=== PATIENT | female | born 1940 | race Caucasian/White ===

== ENCOUNTER 2017-09-22 08:03 | Day surgery (SDC) | payer MEDICARE, OTHER ==
[~2017-09-22 08:03] MED LIST: Lactated Ringers 1,000 ML IV SCH; Sodium Chloride 0.9% 10 ML Syringe FLUSH PRN; Sodium Chloride 0.9% 2.5 ML Syringe FLUSH PRN
--- NOTE | 2017-09-22 08:50 | PCM.PREANE ---
Preanesthetic Assessment - Anesthesia/Transfusion/Family Hx Anesthesia History: Prior Anesthesia Without Reaction Family History of Anesthesia Reaction: No Transfusion History: No Prior Transfusion(s) - Review of Systems General: No Symptoms Pulmonary: No Symptoms Cardiovascular: No Symptoms Gastrointestinal: No Symptoms Neurological: No Symptoms Other: Reports: None - Physical Assessment NPO Status Date: 09/21/17 O2 Sat by Pulse Oximetry: 99 Respiratory Rate: 16 Vital Signs: Last Vital Signs Temp 36 C 09/22/17 08:12 Pulse 86 09/22/17 08:12 Resp 16 09/22/17 08:12 BP 131/82 09/22/17 08:12 Pulse Ox 99 09/22/17 08:12 Height: 1.6 m Weight: 51.256 kg ASA Class: 2 Mental Status: Alert & Oriented x3 Airway Class: Mallampati = 1 Lungs: Clear to Auscultation, Normal Respiratory Effort Cardiovascular: Regular Rate, Regular Rhythm - Allergies Allergies/Adverse Reactions: Allergies Allergy/AdvReac Type Severity Reaction Status Date / Time No Known Allergies Allergy Verified 09/19/17 13:30 - Anesthesia Plan Pre-Op Medication Ordered: None - Acknowledgements Anesthesia Type Planned: MAC Pt an Appropriate Candidate for the Planned Anesthesia: Yes Alternatives and Risks of Anesthesia Discussed w Pt/Guardian: Yes Pt/Guardian Understands and Agrees with Anesthesia Plan: Yes PreAnesthesia Questionnaire HEENT History: Reports: Other (See Below) Other HEENT History: wears glasses, top and bottom partial Cardiovascular History: Reports: Hypertension Genitourinary History: Reports: None 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: Musculoskeletal History: Reports: Fracture, Osteoarthritis Other Musculoskeletal History: hx fx rt hip Psychiatric History: Reports: Anxiety, Depression Endocrine/Metabolic History: Reports: None Hematologic History: Reports: Iron Deficiency - Past Surgical History Head Surgeries/Procedures: Reports: None HEENT Surgical History: Reports: None Female Surgical History: Reports: D&C Musculoskeletal Surgical History: Reports: Hip Replacement Other Musculoskeletal Surgeries/Procedures:: surgical tx for fx rt hip - SUBSTANCE USE Smoking Status *Q: Never Smoker Second Hand Smoke Exposure: No Recreational Drug Use History: No - HOME MEDS Home Medications: Home Meds Losartan/Hydrochlorothiazide [Losartan-HCTZ 100-25 MG] 100 mg PO DAILY 02/02/15 [History] amLODIPine Besylate [Amlodipine Besylate] 5 mg PO DAILY 02/02/15 [History] Ascorbic Acid [Vitamin C] 500 mg PO DAILY 09/19/17 [History] Aspirin [[place] Aspirin] 81 mg PO DAILY 09/19/17 [History] Calcium Carbonate/Vitamin D3 [Calcium 600 + Vit D 200] 1 tab PO DAILY 09/19/17 [ History] Cholecalciferol (Vitamin D3) [Vitamin D3] 1,000 units PO DAILY 09/19/17 [History ] Iron 1 tab PO DAILY 09/19/17 [History] - CURRENT (IN HOUSE) MEDS Current Meds: Current Medications Lactated Ringer's (Ringers, Lactated) 1,000 mls @ 125 mls/hr IV ASDIRECTED KATHRYN Last Admin: 09/22/17 08:19 Dose: 125 mls/hr Sodium Chloride (Saline Flush) 10 ml FLUSH ASDIRECTED PRN PRN Reason: Keep Vein Open Sodium Chloride (Saline Flush) 2.5 ml FLUSH ASDIRECTED PRN PRN Reason: Keep Vein Open Sodium Chloride (Saline Flush) 10 ml FLUSH ASDIRECTED PRN PRN Reason: Keep Vein Open Sodium Chloride (Saline Flush) 2.5 ml FLUSH ASDIRECTED PRN PRN Reason: Keep Vein Open
[2017-09-22] MEDS ORDERED: Propofol 200 MG/20 ML SDV ONE ×2 (09:07→11:06)
[2017-09-22] MEDS ORDERED: Glycopyrrolate 0.2 MG/ML SDV ONE (11:21)
--- NOTE | 2017-09-22 11:41 | PCM.OPNOTE ---
- General Post-Op/Procedure Note Date of Surgery/Procedure: 09/22/17 Operative Procedure(s): Diagnostic EGD and colonoscopy Findings: Normal EGD and colonoscopy Pre Op Diagnosis: Anemia Post-Op Diagnosis: same Anesthesia Technique: MAC Primary Surgeon: Adriane Haq Condition: Good
--- NOTE | 2017-09-22 11:55 | PCM.POSTAN ---
POST ANESTHESIA ASSESSMENT - MENTAL STATUS Mental Status: Alert, Oriented - RESPIRATORY Respiratory Status: Respiratory Rate WNL, Airway Patent, O2 Saturation Stable - CARDIOVASCULAR CV Status: Pulse Rate WNL, Blood Pressure Stable - GASTROINTESTINAL GI Status: No Symptoms - POST OP HYDRATION Hydration Status: Adequate & Stable
--- NOTE | 2017-09-22 11:56 | PCM48HPAN ---
Post Anesthesia Note - EVALUATION WITHIN 48HRS OF ANESTHETIC Vital Signs in Normal Range: Yes Patient Participated in Evaluation: Yes Respiratory Function Stable: Yes Airway Patent: Yes Cardiovascular Function Stable: Yes Hydration Status Stable: Yes Pain Control Satisfactory: Yes Nausea and Vomiting Control Satisfactory: Yes Mental Status Recovered: Yes
[2017-09-22 12:15] VITALS: BP 120/80
--- NOTE | 2017-09-22 20:16 | OR ---
SURGEON: ADRIANE HAQ MD DATE OF PROCEDURE: 09/22/2017 PREOPERATIVE DIAGNOSIS: Anemia. POSTOPERATIVE DIAGNOSIS: Anemia. PROCEDURE PERFORMED: Diagnostic EGD and colonoscopy. PRIMARY SURGEON: Adriane Haq MD. ANESTHESIA: MAC. INSTRUMENT USED: Olympus endoscope and Olympus colonoscope. EXTENT OF EXAM: To the second portion of duodenum, to the cecum. PREPARATION: Good. LIMITATIONS: None. INDICATION FOR EXAMINATION: The patient is a 77-year-old female, who recently was found to be mildly anemic on a screening blood panel. She denies any changes in her eating or bowel habits. She does have a sister, who had colon cancer. She has never had a colonoscopy. The decision was made to perform a diagnostic EGD and colonoscopy. We discussed the procedure as well as expected perioperative course. We discussed the risks including bleeding, infection, or damage to surrounding structures including perforation. The patient verbalized understanding and wishes to proceed. PROCEDURE IN DETAIL: The patient was brought to the endoscopy suite and placed in a beach chair position. A time-out was completed verifying the patient's name, age, date of , allergies, and procedure to be performed. Monitored anesthesia care was induced and continuous oxygen was provided via nasal cannula throughout the procedure. A bite block was placed in the patient's mouth. After adequate sedation was achieved, a well lubricated endoscope was placed in the patient's mouth and advanced under direct visualization to the level of second portion of duodenum. This appeared normal and a photograph was taken. The scope was then fully withdrawn while examining the upper GI tract. The duodenal bulb appeared normal. The scope was then brought into the stomach and a photograph was taken of the pylorus and GE junction, which appeared normal. The gastric mucosa showed no evidence of ulceration or inflammation. Biopsies were taken at the gastric antrum, body, and fundus and sent for H. pylori testing. The scope was brought into the distal esophagus which appeared normal. A photograph was taken. The scope was fully pulled back to the remainder of the esophagus and no pathology was noted. The scope was then removed and this portion of procedure terminated. The patient was placed in a left lateral decubitus position. A digital rectal exam was performed. This exam was within normal limits. A well lubricated colonoscope was inserted in the rectum and advanced under direct visualization to the level of cecum. The cecum was identified by both visual and anatomic landmarks. The patient had a very redundant colon that was quite tortuous, so I was unable to retroflex the scope within the cecum. A photograph was taken of the cecal cap. The scope was then fully withdrawn while examining the color, texture, anatomy, and integrity of mucosa from the cecum to the anal canal. This exam was all within normal limits. The scope was brought into the rectum. I attempted to retroflex the scope multiple times within the rectum to visualize the anal canal, however, the patient had a small rectal vault, and I could not achieve this. I took great care to examine the rectum on my way out. The scope was fully withdrawn and the procedure terminated. The cecum to anus time was 6 minutes. The patient tolerated the procedure well and was taken to the PACU in stable condition. ENDOSCOPIC DIAGNOSES: Normal EGD and colonoscopy. RECOMMENDATIONS: We will follow up on the patient's biopsy results. If these are normal, she does not need to follow up in clinic with me. Given her family history of colon cancer, ideally she should have another colonoscopy again in 5 years or if there are changes in her bowel habits. CHARMAINE WARREN /[id number] LAURENCE
== END 2017-09-22 12:15 | disposition home or self-care (01) ==
LOC: MW.SDS 08:03
PROVIDERS: ATTEND Surgery
DX: D64.9 Anemia, unspecified (principal); N20.0 Calculus of kidney; I10 Essential (primary) hypertension; D50.9 Iron deficiency anemia, unspecified; M19.90 Unspecified osteoarthritis, unspecified site; M81.0 Age-related osteoporosis without current pathological fracture; Z79.82 Long term (current) use of aspirin; Z79.899 Other long term (current) drug therapy; Z98.890 Other specified postprocedural states; Z96.641 Presence of right artificial hip joint
CPT/HCPCS: 43239; 45378; J7120; 00813; 88305; 88312; J2704

== ENCOUNTER 2020-03-12 09:59 | Emergency (ER) | payer MEDICARE, OTHER ==
[2020-03-12] MEDS ORDERED: Diphtheria,Pertussis(Acell),Tetanus Vaccine 0.5 ML Syringe IM ONE (10:15)
[2020-03-12] MEDS ORDERED: Lidocaine 1% with EPINEPHrine 1:100,000 10 ML MDV INJECT ONE (10:15)
--- NOTE | 2020-03-12 10:19 | EDM.PDOC ---
ED HPI GENERAL MEDICAL PROBLEM - General Chief Complaint: Head Injury Stated Complaint: CUT ON HEAD Time Seen by Provider: 03/12/20 10:12 - History of Present Illness INITIAL COMMENTS - FREE TEXT/NARRATIVE: History of present illness: 79-year-old female presenting with head injury with laceration. No loss of consciousness. Apparently she was getting up this morning and tripped over her bed and fell and struck her forehead into the leg of the bed. She has some pain at the site of the laceration and some neck pain. Reports no anticoagulation, does take aspirin daily. Review of systems: As per history of present illness and below otherwise all systems reviewed and negative. Past medical history: As per history of present illness and as reviewed below otherwise noncontributory. Hypertension Surgical history: As per history of present illness and as reviewed below otherwise noncontributory. Social history: No reported history of drug or alcohol abuse. No tobacco Family history: As per history of present illness and as reviewed below otherwise noncontributory. Physical exam: GEN: no acute distress, well appearing HEENT: 3 cm laceration over the forehead and into the hairline in the midline, subcutaneous tissue visible,, normocephalic, mucous membranes moist, Neck: supple, mildly tender, trachea midline. Lungs: No respiratory distress. Heart: RRR Abdomen: Soft, nondistended, nontender. Back: nontender Extremities: Atraumatic. Neurovascularly intact. Neuro: Awake, alert, oriented. Neuro Exam nonfocal. Skin: warm, dry, no lesions Diagnostics: [] Therapeutics: [] MDM: Impression: [] Plan: [] Definitive disposition and diagnosis as appropriate pending reevaluation and review of above. Neck Pain Score (Numeric/FACES): 8 - Related Data Allergies Allergy/AdvReac Type Severity Reaction Status Date / Time No Known Allergies Allergy Verified 03/12/20 10:15 Home Meds: Home Meds Losartan/Hydrochlorothiazide [Losartan-HCTZ 100-25 MG] 100 mg PO DAILY 02/02/15 [History] amLODIPine Besylate [Amlodipine Besylate] 5 mg PO DAILY 02/02/15 [History] Ascorbic Acid [Vitamin C] 500 mg PO DAILY 09/19/17 [History] Aspirin [[place] Aspirin EC] 81 mg PO DAILY 09/19/17 [History] Calcium Carbonate/Vitamin D3 [Calcium 600 + Vit D 200] 1 tab PO DAILY 09/19/17 [History] Cholecalciferol (Vitamin D3) [Vitamin D3] 1,000 units PO DAILY 09/19/17 [History] Iron 1 tab PO DAILY 09/19/17 [History] Past Medical History HEENT History: Reports: Other (See Below) Other HEENT History: wears glasses Cardiovascular History: Reports: Hypertension Genitourinary History: Reports: None 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: Musculoskeletal History: Reports: Fracture, Osteoarthritis Other Musculoskeletal History: hx fx rt hip Psychiatric History: Reports: Anxiety, Depression Endocrine/Metabolic History: Reports: None Hematologic History: Reports: Iron Deficiency - Past Surgical History Head Surgeries/Procedures: Reports: None HEENT Surgical History: Reports: None Female Surgical History: Reports: D&C Musculoskeletal Surgical History: Reports: Hip Replacement Other Musculoskeletal Surgeries/Procedures:: surgical tx for fx rt hip ED ROS GENERAL - Review of Systems Review Of Systems: See Below (HPI) ED EXAM, HEAD INJURY - Physical Exam Exam: See Below (See HPI) ED LACERATION/WOUND & DELMY PROC - Laceration/Wound Repair Middle Face Lac/wound length in cm: 3 Appearance: Subcutaneous, Clean Anesthetic Type: Local Local Anesthesia - Lidocaine (Xylocaine): 1% Plain, 1% with EPI Local Anesthetic Volume: 2cc Skin Prep: Providone-Iodine (Betadine), Saline Saline irrigation (cc's): 20 Exploration/Debridement/Repair: Wound Explored, In a Bloodless Field, Explored to Base, No Foreign Material Found Closed with: Sutures Suture Size: 4-0 # of Sutures: 4 Suture Type: Simple, Other (ethilon) Course - Vital Signs Text/Narrative:: Closed head injury. Laceration present. Tetanus will be updated. CT scans ordered. Laceration will require suture repair. CT head with no acute intracranial injury, probably chronic meningioma seen. CT C-spine shows C2 dens fracture with 2 mm of posterior displacement. Will need transfer. I have spoken to the CT department who will push the images over to [facility] so the neurosurgeon can evaluate them. Spoke to both the emergency department physician at [facility] and the neurosurgeon, Dr. Austin at [facility], both of whom accept the patient. The patient was awaiting transfer team when she developed atrial fibrillation - no hx of same. Started on diltiazem and IVF. Labs unremarkable, including negative troponin. anticoagulation held ,pending neurosurgery evaluation, in case of possible need for surgical evaluation and due to recent onset afib. Last Recorded V/S: Last Vital Signs Temp 97.6 F 03/12/20 10:18 Pulse 105 H 03/12/20 13:01 Resp 10 L 03/12/20 13:01 BP 96/49 L 03/12/20 13:01 Pulse Ox 98 03/12/20 13:01 - Orders/Labs/Meds Orders: Active Orders 24 hr Category Date Time Status EKG Documentation Completion [RC] STAT Care 03/12/20 11:53 Active Vaccines to be Administered [RC] PER UNIT ROUTINE Care 03/12/20 10:16 Active Saline Lock Insert [OM.PC] Stat Oth 03/12/20 11:16 Ordered Labs: Laboratory Tests 03/12/20 03/12/20 03/12/20 Range/Units 11:28 11:28 11:28 WBC 14.01 H (4.0-11.0) K/uL RBC 4.29 L (4.30-5.90) M/uL Hgb 13.5 (12.0-16.0) g/dL Hct 39.0 (36.0-46.0) % MCV 90.9 (80.0-98.0) fL MCH 31.5 (27.0-32.0) pg MCHC 34.6 (31.0-37.0) g/dL RDW Std Deviation 42.2 (28.0-62.0) fl RDW Coeff of Jaydon 13 (11.0-15.0) % Plt Count 334 (150-400) K/uL MPV 8.30 (7.40-12.00) fL Neut % (Auto) 77.8 (48.0-80.0) % Lymph % (Auto) 12.6 L (16.0-40.0) % Bennett % (Auto) 9.4 (0.0-15.0) % Eos % (Auto) 0.1 (0.0-7.0) % Baso % (Auto) 0.1 (0.0-1.5) % Neut # (Auto) 10.9 H (1.4-5.7) K/uL Lymph # (Auto) 1.8 (0.6-2.4) K/uL Bennett # (Auto) 1.3 H (0.0-0.8) K/uL Eos # (Auto) 0.0 (0.0-0.7) K/uL Baso # (Auto) 0.0 (0.0-0.1) K/uL Nucleated RBC % 0.0 /100WBC Nucleated RBCs # 0 K/uL INR 0.99 Sodium 133 L (136-145) mmol/L Potassium 3.5 (3.5-5.1) mmol/L Chloride 97 L (98-107) mmol/L Carbon Dioxide 28.0 (21.0-32.0) mmol/L BUN 22 H (7.0-18.0) mg/dL Creatinine 1.0 (0.6-1.0) mg/dL Est Cr Clr Drug Dosing 34.42 mL/min Estimated GFR (MDRD) 53.5 ml/min Glucose 98 (74-106) mg/dL Calcium 9.4 (8.5-10.1) mg/dL Total Bilirubin 0.6 (0.2-1.0) mg/dL AST 28 (15-37) IU/L ALT 35 (14-63) IU/L Alkaline Phosphatase 57 (46-116) U/L Troponin I (0.000-0.056) ng/mL Total Protein 8.0 (6.4-8.2) g/dL Albumin 4.4 (3.4-5.0) g/dL Globulin 3.6 (2.6-4.0) g/dL Albumin/Globulin Ratio 1.2 (0.9-1.6) 03/12/20 Range/Units 11:28 WBC (4.0-11.0) K/uL RBC (4.30-5.90) M/uL Hgb (12.0-16.0) g/dL Hct (36.0-46.0) % MCV (80.0-98.0) fL MCH (27.0-32.0) pg MCHC (31.0-37.0) g/dL RDW Std Deviation (28.0-62.0) fl RDW Coeff of Jaydon (11.0-15.0) % Plt Count (150-400) K/uL MPV (7.40-12.00) fL Neut % (Auto) (48.0-80.0) % Lymph % (Auto) (16.0-40.0) % Bennett % (Auto) (0.0-15.0) % Eos % (Auto) (0.0-7.0) % Baso % (Auto) (0.0-1.5) % Neut # (Auto) (1.4-5.7) K/uL Lymph # (Auto) (0.6-2.4) K/uL Bennett # (Auto) (0.0-0.8) K/uL Eos # (Auto) (0.0-0.7) K/uL Baso # (Auto) (0.0-0.1) K/uL Nucleated RBC % /100WBC Nucleated RBCs # K/uL INR Sodium (136-145) mmol/L Potassium (3.5-5.1) mmol/L Chloride (98-107) mmol/L Carbon Dioxide (21.0-32.0) mmol/L BUN (7.0-18.0) mg/dL Creatinine (0.6-1.0) mg/dL Est Cr Clr Drug Dosing mL/min Estimated GFR (MDRD) ml/min Glucose (74-106) mg/dL Calcium (8.5-10.1) mg/dL Total Bilirubin (0.2-1.0) mg/dL AST (15-37) IU/L ALT (14-63) IU/L Alkaline Phosphatase (46-116) U/L Troponin I < 0.050 (0.000-0.056) ng/mL Total Protein (6.4-8.2) g/dL Albumin (3.4-5.0) g/dL Globulin (2.6-4.0) g/dL Albumin/Globulin Ratio (0.9-1.6) Meds: Medications Discontinued Medications Generic Name Dose Route Start Last Admin Trade Name Freq PRN Reason Stop Dose Admin Diltiazem HCl 20 mg 03/12/20 12:32 03/12/20 12:39 Diltiazem IVPUSH 03/12/20 12:33 20 mg ONETIME ONE Administration Diphtheria/Tetanus/Acell Pertussis 0.5 ml 03/12/20 10:15 03/12/20 10:45 Adacel IM 03/12/20 10:16 0.5 ml .ONCE ONE Administration Sodium Chloride 1,000 mls @ 999 mls/hr 03/12/20 11:53 03/12/20 12:01 Normal Saline IV 03/12/20 12:53 999 mls/hr .Bolus ONE Administration Sodium Chloride 1,000 mls @ 999 mls/hr 03/12/20 12:45 Normal Saline IV ASDIRECTED KATHRYN Lidocaine HCl 5 ml 03/12/20 10:19 03/12/20 10:45 Xylocaine-Mpf 1% INJECT 03/12/20 10:20 5 ml ONETIME ONE Administration Lidocaine/Epinephrine 10 ml 03/12/20 10:15 03/12/20 10:20 Xylocaine 1% With Epinephrine 1:100,000 INJECT 03/12/20 10:16 Not Given ONETIME ONE Sodium Chloride 10 ml 03/12/20 11:16 03/12/20 11:49 Saline Flush FLUSH 10 ml ASDIRECTED PRN Administration Keep Vein Open Sodium Chloride 2.5 ml 03/12/20 11:16 03/12/20 11:49 Saline Flush FLUSH 2.5 ml ASDIRECTED PRN Administration Keep Vein Open - Re-Assessments/Exams Free Text/Narrative Re-Assessment/Exam: 03/12/20 11:20 Well-appearing and in no acute distress. Resting comfortably. I discussed CT scan findings including posterior likely chronic meningioma, she had no history of this but discussed with her that she will need ongoing continuing monitoring and following for this. She is not having any headache in this area. Also discussed that she has a C2 dens fracture which needs neurosurgical evaluation and that she will need transfer to [facility]. She agrees with that plan and accepts consent to transfer. 03/12/20 11:[address] Morataya, ER physician at [facility]. Request to speak to neurosurgery prior to accepting transfer. I also spoke with Dr. Austin, the neurosurgeon, who accepts the transfer. 03/12/20 12:05 While awaiting transfer, the patient developed a tachycardic heart rate. EKG was performed which shows atrial fibrillation with rapid rate of 144. The patient is asymptomatic. Will add on troponin and start rate control. 03/12/20 12:[address] Morataya, ER physician at [facility], I updated him ab out the new developments of tachycardia including new onset atrial fibrillation with rapid rate and plan for fluids diltiazem and adding troponin. He agrees with this plan. He will update Dr. Austin on the developments and consult internal medicine for the new onset atrial fibrillation once the patient arrives there. Departure - Departure Time of Disposition: 11:39 Disposition: DC/Tfer to Acute Hospital 02 Clinical Impression: Dens fracture, Laceration of forehead, Meningioma, Atrial fibrillation with RVR - Discharge Information Referrals: Brandon Huff MD [Primary Care Provider] - Forms: ED Department Discharge Critical Care Note - Critical Care Note Total Time (mins): 35 Comments: C2 fracture requiring urgent neurosurgery consultation, new onset Afib with RVR requiring rate control medication Sepsis Event Note (ED) - Focused Exam Vital Signs: Vital Signs Temp Pulse Resp BP Pulse Ox 03/12/20 13:01 105 H 10 L 96/49 L 98 03/12/20 12:42 90 11 L 127/61 98 03/12/20 12:02 143 H 10 L 132/81 99 03/12/20 10:18 97.6 F 110 H 18 112/85 99 - My Orders Last 24 Hours: My Active Orders 03/12/20 10:16 Vaccines to be Administered [RC] PER UNIT ROUTINE 03/12/20 11:16 Saline Lock Insert [OM.PC] Stat 03/12/20 11:53 EKG Documentation Completion [RC] STAT - Assessment/Plan Last 24 Hours: My Active Orders 03/12/20 10:16 Vaccines to be Administered [RC] PER UNIT ROUTINE 03/12/20 11:16 Saline Lock Insert [OM.PC] Stat 03/12/20 11:53 EKG Documentation Completion [RC] STAT
--- NOTE | 2020-03-12 10:55 | CT ---
Head CT Technique: Multiple axial sections through the brain were obtained. Intravenous contrast was not utilized. Comparison: No prior intracranial imaging is available. Findings: Calcifying abnormality is noted within the posterior left occipital lobe measuring 1.8 cm in size. This appears to arise from an extra-axial location and is felt most likely to represent a chronic meningioma. Ventricles along with basal cisterns and sulci over the convexities are mildly prominent. Diminished density is noted within portions of the periventricular and subcortical white matter which is most likely due to small vessel ischemic demyelination change. No other abnormal parenchymal densities are seen. No evidence of intracranial hemorrhage. No midline shift or mass-effect is seen. Bone window settings were reviewed. Visualized mastoid sinuses are clear. No acute paranasal sinus findings are seen within the visualized sinuses. No acute calvarial abnormality is appreciated. Impression: 1. Probable chronic meningioma within the within the posterior left occipital region measuring 1.8 cm. 2. Senescent change as noted above. 3. No acute intracranial abnormality is appreciated. Diagnostic code #2 This report was dictated in MDT
--- NOTE | 2020-03-12 10:58 | CT ---
CT cervical spine Technique: Multiple axial sections were obtained from above C1 inferiorly to the bottom of T3. Reconstructed sagittal and coronal images were reviewed. Comparison: No prior cervical spine imaging is available. Findings: Acute fracture is identified within the dens of C2. The fractured tip of the dens is displaced posteriorly by about 2.3 mm. Central canal diameter is fairly well patent at this time. No additional cervical spine fracture is noted. Scattered degenerative change within the apophyseal joints is noted. Vertebral body heights and disc spaces are maintained. Minimal subluxation is noted at C5-6 compatible with degenerative apophyseal change. Bony structures are osteoporotic. Impression: 1. Fracture within the dens of C2. Distal dens fragment displaced posteriorly by about 2.3 mm. 2. Mild degenerative change and osteopenia. 3. No other acute finding is seen. Diagnostic code #5 This report was dictated in MDT
[2020-03-12] MEDS ORDERED: Sodium Chloride 0.9% 2.5 ML Syringe FLUSH PRN (11:16)
[2020-03-12] MEDS ORDERED: Sodium Chloride 0.9% 10 ML Syringe FLUSH PRN (11:16)
[2020-03-12] MEDS ORDERED: Sodium Chloride 0.9% 1,000 ML IV ONE (11:53)
[2020-03-12 12:02] LABS: POTASSIUM,K 3.5 mmol/L (3.5-5.1)
[2020-03-12] MEDS ORDERED: Diltiazem 25 MG/5 ML SDV IVPUSH ONE (12:32)
[2020-03-12] MEDS ORDERED: Sodium Chloride 0.9% 1,000 ML IV SCH (12:45)
[2020-03-12 13:02] VITALS: BP 96/49; PULSE 105
== END 2020-03-12 13:40 ==
LOC: MW.ED 09:59
DX: S12.111A Posterior displaced Type II dens fracture, initial encounter for closed fracture (principal); S01.81XA Laceration without foreign body of other part of head, initial encounter; I48.91 Unspecified atrial fibrillation; D32.9 Benign neoplasm of meninges, unspecified; I10 Essential (primary) hypertension; M19.90 Unspecified osteoarthritis, unspecified site; F41.9 Anxiety disorder, unspecified; F32.9 Major depressive disorder, single episode, unspecified; Z23 Encounter for immunization; W06.XXXA Fall from bed, initial encounter; W22.8XXA Striking against or struck by other objects, initial encounter; Z79.82 Long term (current) use of aspirin; Z79.899 Other long term (current) drug therapy
CPT/HCPCS: 12013; 36415; 70450; 72125; 80053; 84484; 85025; 85610; 90471; 90715; 93005; 96374; 99285; J2001; J3490; J7030

== ENCOUNTER 2020-07-07 22:22 | Emergency (ER) | payer MEDICARE, OTHER ==
--- NOTE | 2020-07-07 22:42 | EDM.PDOC ---
ED HPI GENERAL MEDICAL PROBLEM - General Chief Complaint: Cardiovascular Problem Stated Complaint: HIGH BLOOD PRESSURE Time Seen by Provider: 07/07/20 22:24 - History of Present Illness INITIAL COMMENTS - FREE TEXT/NARRATIVE: History of present illness: [] Patient did a routine blood pressure check and her blood pressure was 204 systolic. That made her very anxious and nervous and she comes to the emergency department without symptoms other than that. She has an appointment in 2 days to see if she can get the back brace off. She had a neck fracture been in the brace for 4 months. Its reasonably uncomfortable. She is not short of breath has no chest pain and has no neurologic deficit. Her blood pressure medicine in the morning. Review of systems: As per history of present illness and below otherwise all systems reviewed and negative. Past medical history: As per history of present illness and as reviewed below otherwise noncontributory. Surgical history: As per history of present illness and as reviewed below otherwise noncontributory. Social history: No reported history of drug or alcohol abuse. Family history: As per history of present illness and as reviewed below otherwise noncontributory. Physical exam: Constitutional - well developed, well-nourished and in no acute distress HEENT - normocephalic, no evidence of trauma - external nose and mouth normal - no mass in neck and no JVD - mucosae moist EYES - full EOM, PERRL, no icterus - no evidence of inflammation, injection, or drainage Respiratory - no respiratory distress, equal bilateral expansion, lungs clear to auscultation and no abnormal lung sounds Cardiovascular - Regular Rhythm with S1 and S2 appreciated and no murmur, gallop or rub. GI - abdomen soft without distension or organomegaly - normal bowel sounds - no guard or rebound Musculoskeletal no gross deformity of long bones or joints - no tenderness, swelling or edema Neurologic - Alert and oriented times four - CN II-XII grossly intact - motor sensory and coordination symmetrically normal Psychiatric - appropriate mood and affect with normal thought content Hematologic - No petechiae or purpura - mucosa appropriate color and sclera not pale - normal nail bed color and refill Integument - no rash or evidence of trauma - normal turgor Diagnostics: [] Therapeutics: [] Impression: [] Plan: [] Definitive disposition and diagnosis as appropriate pending reevaluation and review of above. - Related Data Allergies Allergy/AdvReac Type Severity Reaction Status Date / Time No Known Allergies Allergy Verified 07/07/20 22:47 Home Meds: Home Meds Losartan/Hydrochlorothiazide [Losartan-HCTZ 100-25 MG] 100 mg PO DAILY 02/02/15 [History] amLODIPine Besylate [Amlodipine Besylate] 5 mg PO DAILY 02/02/15 [History] Ascorbic Acid [Vitamin C] 500 mg PO DAILY 09/19/17 [History] Aspirin [[place] Aspirin EC] 81 mg PO DAILY 09/19/17 [History] Calcium Carbonate/Vitamin D3 [Calcium 600 + Vit D 200] 1 tab PO DAILY 09/19/17 [History] Cholecalciferol (Vitamin D3) [Vitamin D3] 1,000 units PO DAILY 09/19/17 [History] Iron 1 tab PO DAILY 09/19/17 [History] Past Medical History HEENT History: Reports: Other (See Below) Other HEENT History: wears glasses Cardiovascular History: Reports: Hypertension Genitourinary History: Reports: None 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: Musculoskeletal History: Reports: Fracture, Osteoarthritis Other Musculoskeletal History: hx fx rt hip Psychiatric History: Reports: Anxiety, Depression Endocrine/Metabolic History: Reports: None Hematologic History: Reports: Iron Deficiency - Past Surgical History Head Surgeries/Procedures: Reports: None HEENT Surgical History: Reports: None Female Surgical History: Reports: D&C Musculoskeletal Surgical History: Reports: Hip Replacement Other Musculoskeletal Surgeries/Procedures:: surgical tx for fx rt hip Social & Family History - Caffeine Use Caffeine Use: Reports: None ED ROS GENERAL - Review of Systems Review Of Systems: Comprehensive ROS is negative, except as noted in HPI. ED EXAM, GENERAL - Physical Exam Exam: See Below Free Text/Narrative:: My physical exam is in the HPI #1 Interpretation EKG Interpretation Comments: EKG shows a sinus tachycardia with a heart rate of 99 and a MO interval of 190. This represents first-degree AV block. The QT is 452 and the axis is 7. There is a late transition R wave in the precordium. There is some nonspecific ST abnormalities. When compared to 03/12/2020 EKG showed atrial fibrillation. At that time also the transition R wave was before V3. Otherwise there is no significant change from the EKGs. Impression conversion to sinus rhythm with no obvious acute injury Course - Vital Signs Text/Narrative:: 2312 hrs. resting blood pressure 163/91. He is only on 5 mg of amlodipine. I am going to boost her with an extra 5 tonight and have her follow-up with her doctor tomorrow. She has a CT of her neck tomorrow scheduled and she is a little upset about that I think. Last Recorded V/S: Last Vital Signs Temp 35.9 C L 07/07/20 22:30 Pulse 104 H 07/07/20 23:19 Resp 16 07/07/20 23:19 BP 148/86 H 07/07/20 23:19 Pulse Ox 98 07/07/20 23:19 - Orders/Labs/Meds Orders: Active Orders 24 hr Category Date Time Status EKG Documentation Completion [RC] AM Care 07/07/20 22:39 Active Labs: Laboratory Tests 07/07/20 07/07/20 07/07/20 Range/Units 22:53 22:53 23:00 WBC 8.56 (4.0-11.0) K/uL RBC 4.09 L (4.30-5.90) M/uL Hgb 13.2 (12.0-16.0) g/dL Hct 38.4 (36.0-46.0) % MCV 93.9 (80.0-98.0) fL MCH 32.3 H (27.0-32.0) pg MCHC 34.4 (31.0-37.0) g/dL RDW Std Deviation 40.9 (28.0-62.0) fl RDW Coeff of [place] 12 (11.0-15.0) % Plt Count 318 (150-400) K/uL MPV 8.40 (7.40-12.00) fL Neut % (Auto) 64.7 (48.0-80.0) % Lymph % (Auto) 25.7 (16.0-40.0) % [place] % (Auto) 9.5 (0.0-15.0) % Eos % (Auto) 0.0 (0.0-7.0) % Baso % (Auto) 0.1 (0.0-1.5) % Neut # (Auto) 5.5 (1.4-5.7) K/uL Lymph # (Auto) 2.2 (0.6-2.4) K/uL [place] # (Auto) 0.8 (0.0-0.8) K/uL Eos # (Auto) 0.0 (0.0-0.7) K/uL Baso # (Auto) 0.0 (0.0-0.1) K/uL Nucleated RBC % 0.0 /100WBC Nucleated RBCs # 0 K/uL Sodium 134 L (136-145) mmol/L Potassium 3.5 (3.5-5.1) mmol/L Chloride 96 L (98-107) mmol/L Carbon Dioxide 26.9 (21.0-32.0) mmol/L BUN 30 H (7.0-18.0) mg/dL Creatinine 0.9 (0.6-1.0) mg/dL Est Cr Clr Drug Dosing TNP Estimated GFR (MDRD) > 60.0 ml/min Glucose 119 H (74-106) mg/dL Calcium 9.3 (8.5-10.1) mg/dL Total Bilirubin 0.4 (0.2-1.0) mg/dL AST 19 (15-37) IU/L ALT 34 (14-63) IU/L Alkaline Phosphatase 63 (46-116) U/L Total Protein 7.4 (6.4-8.2) g/dL Albumin 4.0 (3.4-5.0) g/dL Globulin 3.4 (2.6-4.0) g/dL Albumin/Globulin Ratio 1.2 (0.9-1.6) Urine Color YELLOW Urine Appearance CLOUDY Urine pH 7.5 (5.0-8.0) Ur Specific [place] 1.015 (1.001-1.035) Urine Protein NEGATIVE (NEGATIVE) mg/dL Urine Glucose (UA) NEGATIVE (NEGATIVE) mg/dL Urine Ketones NEGATIVE (NEGATIVE) mg/dL Urine Occult Blood NEGATIVE (NEGATIVE) Urine Nitrite NEGATIVE (NEGATIVE) Urine Bilirubin NEGATIVE (NEGATIVE) Urine Urobilinogen 0.2 (<2.0) EU/dL Ur Leukocyte Esterase SMALL H (NEGATIVE) U Hyaline Cast (Auto) 0-1 (0-2/LPF) Urine RBC 0-2 (0-2/HPF) Urine WBC 3-6 (0-5/HPF) Ur Epithelial Cells OCCASIONAL (NONE-FEW) Amorphous Sediment HEAVY (NEGATIVE) Urine Bacteria 1+ H (NEGATIVE) Urine Mucus LIGHT (NONE-MOD) Meds: Medications Discontinued Medications Generic Name Dose Route Start Last Admin Trade Name Caitlin PRN Reason Stop Dose Admin Amlodipine Besylate 5 mg 07/07/20 23:13 07/07/20 23:18 Norvasc PO 07/07/20 23:14 5 mg ONETIME ONE Administration Departure - Departure Time of Disposition: 23:34 Disposition: Home, Self-Care 01 Condition: Good Clinical Impression: Hypertension Referrals: Brandon Huff MD [Primary Care Provider] - Forms: ED Department Discharge Additional Instructions: For your physicians formation you got 5 mg of additional amlodipine tonight. I would not change anything on the daily regimen if you do not have symptoms. Follow-up with your doctor tomorrow. The following information is given to patients seen in the emergency department who are being discharged to home. This information is to outline your options for follow-up care. We provide all patients seen in our emergency department with a follow-up referral. The need for follow-up, as well as the timing and circumstances, are variable depending upon the specifics of your emergency department visit. If you don't have a primary care physician on staff, we will provide you with a referral. We always advise you to contact your personal physician following an emergency department visit to inform them of the circumstance of the visit and for follow-up with them and/or the need for any referrals to a consulting specialist. The emergency department will also refer you to a specialist when appropriate. This referral assures that you have the opportunity for follow-up care with a specialist. All of these measure are taken in an effort to provide you with optimal care, which includes your follow-up. Under all circumstances we always encourage you to contact your private physician who remains a resource for coordinating your care. When calling for follow-up care, please make the office aware that this follow-up is from your recent emergency room visit. If for any reason you are refused follow-up, please contact the [facility] Emergency Department at and asked to speak to the emergency department charge nurse. Sepsis Event Note (ED) - Focused Exam Vital Signs: Vital Signs Temp Pulse Resp BP BP Pulse Ox 07/07/20 23:19 104 H 16 148/86 H 98 07/07/20 23:18 148/86 H 07/07/20 22:30 35.9 C L 109 H 17 158/83 H 97 - My Orders Last 24 Hours: My Active Orders 07/07/20 22:39 EKG Documentation Completion [RC] AM - Assessment/Plan Last 24 Hours: My Active Orders 07/07/20 22:39 EKG Documentation Completion [RC] AM
[2020-07-07] MEDS ORDERED: amLODIPine 5 MG Tab PO ONE (23:13)
[2020-07-07 23:19] LABS: BLOOD UREA NITROGEN,BUN 30 mg/dL (7.0-18.0); CARBON DIOXIDE,CO2 26.9 mmol/L (21.0-32.0); CHLORIDE,CL 96 mmol/L (98-107); GLUCOSE RANDOM 119 mg/dL (74-106); POTASSIUM,K 3.5 mmol/L (3.5-5.1); SODIUM,NA 134 mmol/L (136-145)
[2020-07-08 01:41] VITALS: BP 150/87; PULSE 100
== END 2020-07-08 00:05 | disposition home or self-care (01) ==
LOC: MW.ED 22:22
DX: I10 Essential (primary) hypertension (principal); Z79.82 Long term (current) use of aspirin; Z79.899 Other long term (current) drug therapy; S12.100K Unspecified displaced fracture of second cervical vertebra, subsequent encounter for fracture with nonunion
CPT/HCPCS: 36415; 72125; 80053; 81001; 85025; 93005; 99213; 99283; A9270; 93010; 99282

== ENCOUNTER 2021-09-14 00:12 | Emergency (ER) | payer MEDICARE, OTHER ==
[2021-09-14] MEDS ORDERED: Lactated Ringers 1,000 ML IV STA (00:27)
[2021-09-14] MEDS ORDERED: Ondansetron 4 MG/2 ML SDV IVPUSH ONE (01:19)
[2021-09-14 01:22] LABS: BLOOD UREA NITROGEN,BUN 32 mg/dL (7.0-18.0); CARBON DIOXIDE,CO2 22.9 mmol/L (21.0-32.0); CHLORIDE,CL 99 mmol/L (98-107); GLUCOSE RANDOM 145 mg/dL (74-106); POTASSIUM,K 3.6 mmol/L (3.5-5.1); SODIUM,NA 135 mmol/L (136-145)
[2021-09-14] MEDS ORDERED: Magnesium Oxide 400 MG Tab PO ONE (01:26)
[2021-09-14 01:55] LABS: CORONAVIRUS COVID-19 NAA NEGATIVE (NEGATIVE); INFLUENZA A NAA NEGATIVE (NEGATIVE); INFLUENZA B NAA NEGATIVE (NEGATIVE)
[2021-09-14 03:16] VITALS: BP 103/55; PULSE 109
== END 2021-09-14 03:33 | disposition home or self-care (01) ==
LOC: MW.ED 00:12
DX: E86.0 Dehydration (principal); R11.2 Nausea with vomiting, unspecified; R19.7 Diarrhea, unspecified; M19.90 Unspecified osteoarthritis, unspecified site; Z79.01 Long term (current) use of anticoagulants; Z79.899 Other long term (current) drug therapy; Z20.822 Contact with and (suspected) exposure to COVID-19
CPT/HCPCS: 0240U; 36415; 70450; 71045; 80053; 81001; 82947; 83605; 83735; 84443; 84484; 85025; 85610; 87040; 93005; 96361; 96374; 99284; A9270; J2405; J7120

== ENCOUNTER 2024-01-12 14:31 | Emergency (ER) | payer MEDICARE, OTHER ==
[2024-01-12 17:03] VITALS: BP 127/72; PULSE 85
== END 2024-01-12 17:02 | disposition home or self-care (01) ==
LOC: MW.ED 14:31
DX: S51.011A Laceration without foreign body of right elbow, initial encounter (principal); M25.551 Pain in right hip; I48.91 Unspecified atrial fibrillation; I10 Essential (primary) hypertension; Z75.8 Other problems related to medical facilities and other health care; Z79.899 Other long term (current) drug therapy; Z86.19 Personal history of other infectious and parasitic diseases; W19.XXXA Unspecified fall, initial encounter
CPT/HCPCS: 73502-26-RT; 73502-RT; 99283

== ENCOUNTER 2025-06-06 09:23 | Inpatient (IN) | payer MEDICARE, OTHER ==
[2025-06-06] MEDS ORDERED: Sodium Chloride 0.9% 2.5 ML Syringe FLUSH PRN ×2 (09:50→14:28)
[2025-06-06] MEDS ORDERED: Sodium Chloride 0.9% 10 ML Syringe FLUSH PRN ×2 (09:50→14:28)
[2025-06-06 09:58] LABS: BASOPHILS ABSOLUTE AUTO 0.04 K/uL (0.00-0.20); BASOPHILS PERCENT AUTO 0.5 % (0.0-1.0); EOSINOPHILS ABSOLUTE AUTO 0.00 K/uL (0.00-0.45); EOSINOPHILS PERCENT AUTO 0.0 % (0.0-6.0); IMMATURE GRAN ABSOLUTE AUTO 0.03 K/uL (0.00-0.05); IMMATURE GRAN PERCENT AUTO 0.4 % (0.0-0.4); LYMPHOCYTES ABSOLUTE AUTO 1.27 K/uL (1.00-4.80); LYMPHOCYTES PERCENT AUTO 16.5 % (24.0-44.0); MEAN PLATELET VOLUME 8.9 fL (9.4-12.3); MONOCYTES ABSOLUTE AUTO 0.69 K/uL (0.00-0.80); MONOCYTES PERCENT AUTO 9.0 % (0.0-8.0); NEUTROPHILS ABSOLUTE AUTO 5.65 K/uL (1.80-7.70); NEUTROPHILS PERCENT AUTO 73.6 % (41.0-71.0); NRBC ABSOLUTE 0.00 K/uL (0.00-0.02); NRBC PERCENT 0.0 /100WBC (0.0-0.2); PLATELET COUNT,PLT 254 K/uL (150-400); RED BLOOD CELL COUNT 3.99 M/uL (4.10-5.30); WHITE BLOOD CELL COUNT,WBC 7.68 K/uL (3.9-11.3)
[2025-06-06] MEDS: Diltiazem 25 MG/5 ML SDV IVPUSH ONE (10:17)
[2025-06-06 10:20] LABS: A/G RATIO 1.1 (0.9-1.6); ALANINE AMINOTRANSFERASE,ALT 66.0 IU/L (14-63); ASPARTATE AMNIOTRANSFERASE,AST 49.0 IU/L (15-37); BILIRUBIN TOTAL 0.6 mg/dL (0.2-1.0); BLOOD UREA NITROGEN,BUN 27.0 mg/dL (7.0-18.0); CARBON DIOXIDE,CO2 24.4 mmol/L (21.0-32.0); CHLORIDE,CL 103.0 mmol/L (98-107); CREATININE 1.1 mg/dL (0.6-1.0); EST CRCL DRUG DOSING (CG) 27.35 mL/min; GLUCOSE RANDOM 102.0 mg/dL (74-106); POTASSIUM,K 3.1 mmol/L (3.5-5.1); PRO B-TYPE NATRIUR PEPT,BNPPRO 6726.0 pg/mL (0-450); PROTEIN TOTAL,TP 6.9 g/dL (6.4-8.2); SODIUM,NA 141.0 mmol/L (136-145); TSH ULTRASENSITIVE 3.82 uIU/mL (0.36-3.74)
[2025-06-06 10:26] LABS: ESTIMATED GFR 50.0 mL/min (>60)
[2025-06-06 10:43] LABS: T4 FREE 1.02 ng/dL (0.76-1.46)
[2025-06-06] MEDS: Potassium Chloride 20 MEQ Tab.ER PO ONE (10:59)
[2025-06-06] MEDS: Iopamidol 755 MG/ML 500 ML Multipack Bottle IVPUSH STA (12:00)
[2025-06-06] MEDS: Furosemide 20 MG/2 ML VIAL IVPUSH ONE (12:23)
[2025-06-06] MEDS ORDERED: Non-Formulary Medication 1 Each (Triamcinolone Acetonide [Triamcinolone Acetonide 0.1% Crm TOP SCH (13:00)
[2025-06-06 13:04] LABS: APPEARANCE,URINE CLEAR; GLUCOSE,URINE NEGATIVE (NEGATIVE); OCCULT BLOOD,URINE NEGATIVE (NEGATIVE)
[2025-06-06] MEDS ORDERED: Ondansetron 4 MG Tab.DIS PO PRN (14:28)
[2025-06-06] MEDS ORDERED: Heparin Sodium 5,000 Units/ML Vial SUBCUT SCH (14:30)
[2025-06-06] MEDS: Dexamethasone 1 MG/ML Oral Drops 30 ML Bottle PO SCH (22:28)
[2025-06-07 05:42] LABS: BASOPHILS ABSOLUTE AUTO 0.02 K/uL (0.00-0.20); BASOPHILS PERCENT AUTO 0.3 % (0.0-1.0); EOSINOPHILS ABSOLUTE AUTO 0.00 K/uL (0.00-0.45); EOSINOPHILS PERCENT AUTO 0.0 % (0.0-6.0); IMMATURE GRAN ABSOLUTE AUTO 0.01 K/uL (0.00-0.05); IMMATURE GRAN PERCENT AUTO 0.2 % (0.0-0.4); LYMPHOCYTES ABSOLUTE AUTO 1.16 K/uL (1.00-4.80); LYMPHOCYTES PERCENT AUTO 19.3 % (24.0-44.0); MEAN PLATELET VOLUME 8.8 fL (9.4-12.3); MONOCYTES ABSOLUTE AUTO 0.48 K/uL (0.00-0.80); MONOCYTES PERCENT AUTO 8.0 % (0.0-8.0); NEUTROPHILS ABSOLUTE AUTO 4.35 K/uL (1.80-7.70); NEUTROPHILS PERCENT AUTO 72.2 % (41.0-71.0); NRBC ABSOLUTE 0.00 K/uL (0.00-0.02); NRBC PERCENT 0.0 /100WBC (0.0-0.2); PLATELET COUNT,PLT 212 K/uL (150-400); RED BLOOD CELL COUNT 3.59 M/uL (4.10-5.30); WHITE BLOOD CELL COUNT,WBC 6.02 K/uL (3.9-11.3)
[2025-06-07 06:09] LABS: A/G RATIO 1.1 (0.9-1.6); ALANINE AMINOTRANSFERASE,ALT 58.0 IU/L (14-63); ASPARTATE AMNIOTRANSFERASE,AST 40.0 IU/L (15-37); BILIRUBIN TOTAL 0.7 mg/dL (0.2-1.0); BLOOD UREA NITROGEN,BUN 23.0 mg/dL (7.0-18.0); CARBON DIOXIDE,CO2 24.0 mmol/L (21.0-32.0); CHLORIDE,CL 105.0 mmol/L (98-107); CREATININE 1.0 mg/dL (0.6-1.0); EST CRCL DRUG DOSING (CG) 30.08 mL/min; GLUCOSE RANDOM 106.0 mg/dL (74-106); POTASSIUM,K 3.3 mmol/L (3.5-5.1); PROTEIN TOTAL,TP 6.2 g/dL (6.4-8.2); SODIUM,NA 141.0 mmol/L (136-145)
[2025-06-07 06:20] LABS: ESTIMATED GFR 56.0 mL/min (>60)
[2025-06-07] MEDS: Diltiazem 120 MG Cap.CD PO SCH (08:41)
[2025-06-07] MEDS ORDERED: Diltiazem 120 MG Cap.CD PO SCH (09:00)
[2025-06-07] MEDS: Calcium Carbonate/Vitamin D3 1500 MG-400 Units Tab PO SCH (10:25)
[2025-06-07] MEDS: Furosemide 20 MG/2 ML VIAL IVPUSH SCH (16:56)
[2025-06-08 06:00] LABS: BASOPHILS ABSOLUTE AUTO 0.01 K/uL (0.00-0.20); BASOPHILS PERCENT AUTO 0.1 % (0.0-1.0); EOSINOPHILS ABSOLUTE AUTO 0.00 K/uL (0.00-0.45); EOSINOPHILS PERCENT AUTO 0.0 % (0.0-6.0); IMMATURE GRAN ABSOLUTE AUTO 0.03 K/uL (0.00-0.05); IMMATURE GRAN PERCENT AUTO 0.4 % (0.0-0.4); LYMPHOCYTES ABSOLUTE AUTO 1.11 K/uL (1.00-4.80); LYMPHOCYTES PERCENT AUTO 14.0 % (24.0-44.0); MEAN PLATELET VOLUME 8.9 fL (9.4-12.3); MONOCYTES ABSOLUTE AUTO 0.47 K/uL (0.00-0.80); MONOCYTES PERCENT AUTO 5.9 % (0.0-8.0); NEUTROPHILS ABSOLUTE AUTO 6.29 K/uL (1.80-7.70); NEUTROPHILS PERCENT AUTO 79.6 % (41.0-71.0); NRBC ABSOLUTE 0.00 K/uL (0.00-0.02); NRBC PERCENT 0.0 /100WBC (0.0-0.2); PLATELET COUNT,PLT 235 K/uL (150-400); RED BLOOD CELL COUNT 3.81 M/uL (4.10-5.30); WHITE BLOOD CELL COUNT,WBC 7.91 K/uL (3.9-11.3)
[2025-06-08 06:15] LABS: BLOOD UREA NITROGEN,BUN 26.0 mg/dL (7.0-18.0); CARBON DIOXIDE,CO2 25.9 mmol/L (21.0-32.0); CHLORIDE,CL 103.0 mmol/L (98-107); CREATININE 1.2 mg/dL (0.6-1.0); EST CRCL DRUG DOSING (CG) 25.07 mL/min; GLUCOSE RANDOM 123.0 mg/dL (74-106); POTASSIUM,K 3.7 mmol/L (3.5-5.1); SODIUM,NA 140.0 mmol/L (136-145)
[2025-06-08 06:35] LABS: ESTIMATED GFR 45.0 mL/min (>60)
[2025-06-08 07:35] VITALS: PULSE 124
[2025-06-08 08:31] VITALS: BP 142/93
== END 2025-06-08 10:51 | disposition home or self-care (01) | DRG 293 ==
LOC: MW.ED 09:23 → MW.MS 13:27
PROVIDERS: ADMIT Internal Medicine; ATTEND Internal Medicine
DX: I11.0 Hypertensive heart disease with heart failure (principal); I50.9 Heart failure, unspecified; M19.90 Unspecified osteoarthritis, unspecified site; I48.91 Unspecified atrial fibrillation; F41.9 Anxiety disorder, unspecified; F32.A Depression, unspecified; I36.1 Nonrheumatic tricuspid (valve) insufficiency; Z96.649 Presence of unspecified artificial hip joint; Z79.01 Long term (current) use of anticoagulants; Z79.899 Other long term (current) drug therapy; Z87.81 Personal history of (healed) traumatic fracture; Z98.890 Other specified postprocedural states
CPT/HCPCS: 36415; 71045; 71275; 80053; 81003; 83735; 83880; 84439; 84443; 84484; 85025; 85379; 93005; 93970; 96374; 96375; 99285; A9270 ×2; J1163; J1938; Q9967; 80048; 93306; 97161-GP; 99222; 99232; 99239